=== PATIENT | female | born 1970 | race Caucasian/White ===

== ENCOUNTER 2016-05-03 13:35 | Emergency (ER) | payer SELFPAY | END 2016-05-03 14:33 | disposition left against medical advice (07) | LOC: E/R 13:35 | DX: Z53.21 Procedure and treatment not carried out due to patient leaving prior to being seen by health care provider (principal) ==

== ENCOUNTER 2016-11-02 12:56 | Emergency (ER) | payer OTHER ==
[~2016-11-02] VITALS: Wt 75.0 kg
[2016-11-02] MEDS ORDERED: HYDROCODONE/APAP (5/325) TAB PO ONE (15:00)
[2016-11-02] MEDS ORDERED: DEXAMETHASONE 10 MG/ML 1 ML INJ IM ONE (15:00)
[2016-11-02] MEDS ORDERED: KETOROLAC 30 MG INJ IV STA (15:17)
[2016-11-02 15:57] LABS: BASOPHIL # 0.1 10^3/ul (0.0-0.1); BASOPHILS % 0.5 % (0.0-2.0); EOSINOPHILS # 0.1 10^3/ul (0.0-0.5); EOSINOPHILS % 0.8 % (0.0-7.0); HEMOGLOBIN 14.3 g/dl (12.0-16.0); LYMPHOCYTES # 2.5 10^3/ul (0.8-2.9); LYMPHOCYTES % 18.9 % (15.0-51.0); MEAN CORPUSCULAR HGB CONC 32.5 g/dl (32.0-37.0); MEAN CORPUSCULAR VOLUME 83.2 fl (82.0-101.0); MEAN PLATELET VOLUME 10.2 fl (7.4-10.4); MONOCYTE # 0.9 10^3/ul (0.3-0.9); NEUTROPHIL # 9.7 10^3/ul (1.6-7.5); NEUTROPHILS % 72.6 % (39.0-77.0); PLATELET COUNT 326 10^3/UL (140-415); RED BLOOD COUNT 5.29 10^6/ul (4.20-5.40); RED CELL DISTRIBUTION WIDTH 14.6 % (11.5-14.5); WHITE BLOOD COUNT 13.3 10^3/ul (4.8-10.8)
[2016-11-02] MEDS ORDERED: SOD CHLORIDE 0.9% 1,000 ML IV ONE (16:00)
[2016-11-02 16:19] LABS: ALBUMIN 4.6 g/dl (3.3-4.9); ALBUMIN/GLOBULIN RATIO 1.43; BILIRUBIN,INDIRECT 0.2 mg/dl (0-1.1); BILIRUBIN,TOTAL 0.2 mg/dl (0.2-1.3); CALCIUM 9.6 mg/dl (8.4-10.2); CREATININE 0.88 mg/dl (0.44-1.00); POTASSIUM 4.8 mmol/L (3.5-5.1); TOTAL PROTEIN 7.8 g/dl (6.1-8.1)
--- NOTE | 2016-11-02 16:30 | ERD ---
ER Documentation Chief Complaint Date/Time DATE: 11/02/16 TIME: 16:26 Chief Complaint SORE THROAT FOR THE PAST DAY. UNABLE TO SWALLOW NO STRIDOR HPI This is a 46-year-old female presents the emergency department today complaining of pain with swallowing,, sore throat and pain on the left side of her neck. States she is "unable to swallow her saliva". Denies any fevers or chills. States she has not taken any medication for the pain because she "cannot swallow." Denies any cough,, nasal congestion ROS All systems reviewed and are negative except as per history of present illness. Medications Home Meds Active Scripts Amoxicillin* (Amoxicillin* Susp) 400 Mg/5 Ml Susp.recon, 500 MG PO TID for 7 Days, BOTTLE Prov:KENIA GALLOWAY PA-C 11/02/16 Acetaminophen* (Acetaminophen* Susp) 160 Mg/5 Ml Oral.susp, 20 ML PO Q4H Y for PAIN OR FEVER, #1 BOTTLE Prov:KENIA GALLOWAY PA-C 11/02/16 Ibuprofen (MOTRIN LIQUID (PED)) 20 Mg/Ml Susp, 20 ML PO Q6, #4 OZ Prov:KENIA GALLOWAYC 11/02/16 PMhx/Soc History of Surgery: No Anesthesia Reaction: No Hx Neurological Disorder: No Hx Respiratory Disorders: No Hx Cardiac Disorders: No Hx Psychiatric Problems: No Hx Miscellaneous Medical Probl: No Hx Alcohol Use: No Hx Substance Use: No Hx Tobacco Use: No Smoking Status: Former smoker Physical Exam Vitals Vital Signs Date Time Temp Pulse Resp B/P Pulse Ox O2 Delivery O2 Flow Rate FiO2 11/02/16 13:00 97.9 70 20 140/85 98 Physical Exam Const: No acute distress Head: Atraumatic Eyes: Normal Conjunctiva ENT: Ears TMs normal. Nose no drainage. Throat erythema no exudate uvula midline. No vesicle. Mild tenderness to palpation over submandibular gland with mild lymphadenopathy Neck: Full range of motion..~ No meningismus. Resp: Clear to auscultation bilaterally Cardio: Regular rate and rhythm, no murmurs Skin: No petechiae or rashes Ext: No cyanosis, or edema Neur: Awake and alert Psych: Normal Mood and Affect Result Diagram: 11/02/16 1540 11/02/16 1540 Results 24 hrs Laboratory Tests Test 11/02/16 15:40 White Blood Count 13.310^3/ul Red Blood Count 5.2910^6/ul Hemoglobin 14.3g/dl Hematocrit 44.0% Mean Corpuscular Volume 83.2fl Mean Corpuscular Hemoglobin 27.0pg Mean Corpuscular Hemoglobin Concent 32.5g/dl Red Cell Distribution Width 14.6% Platelet Count 71641^3/UL Mean Platelet Volume 10.2fl Neutrophils % 72.6% Lymphocytes % 18.9% Monocytes % 7.0% Eosinophils % 0.8% Basophils % 0.5% Nucleated Red Blood Cells % 0.0/100WBC Neutrophils # 9.710^3/ul Lymphocytes # 2.510^3/ul Monocytes # 0.910^3/ul Eosinophils # 0.110^3/ul Basophils # 0.110^3/ul Nucleated Red Blood Cells # 0.010^3/ul Sodium Level 144mmol/L Potassium Level 4.8mmol/L Chloride Level 104mmol/L Carbon Dioxide Level 27mmol/L Anion Gap 18 Blood Urea Nitrogen 13mg/dl Creatinine 0.88mg/dl Glucose Level 88mg/dl Calcium Level 9.6mg/dl Total Bilirubin 0.2mg/dl Direct Bilirubin 0.00mg/dl Indirect Bilirubin 0.2mg/dl Aspartate Amino Transf (AST/SGOT) 97IU/L Alanine Aminotransferase (ALT/SGPT) 65IU/L Alkaline Phosphatase 109IU/L Total Protein 7.8g/dl Albumin 4.6g/dl Globulin 3.20g/dl Albumin/Globulin Ratio 1.43 Current Medications Medications (Trade) Dose Ordered Sig/Tereza Route PRN Reason Start Time Stop Time Status Last Admin Dose Admin Dexamethasone (Decadron) 10 mg ONCE ONCE IM 11/02/16 15:00 11/02/16 15:01 DC 11/02/16 14:58 Acetaminophen/ Hydrocodone Bitart (Wilber (5325)) 1 tab ONCE ONCE PO 11/02/16 15:00 11/02/16 16:15 DC 11/02/16 14:58 Ketorolac Tromethamine 30 mg 30 mg ONCE STAT IV 11/02/16 15:17 11/02/16 15:20 DC 11/02/16 15:46 Sodium Chloride (NS) 1,000 ml @ 1,000 mls/hr Q1H ONCE IV 11/02/16 16:00 11/02/16 16:59 DC 11/02/16 16:15 IV Flush 10 ml 10 ml STK-MED ONCE .ROUTE 11/02/16 16:44 11/02/16 16:45 DC 11/02/16 16:58 Sodium Chloride (NS) 100 ml @ ud STK-MED ONCE .ROUTE 11/02/16 16:44 11/02/16 16:45 DC 11/02/16 16:58 Iohexol (Omnipaque 300mg/ ml) 150 ml STK-MED ONCE .ROUTE 11/02/16 16:44 11/02/16 16:45 DC 11/02/16 16:58 Acetaminophen (Tylenol Liquid) 500 mg ONCE ONCE NGT 11/02/16 19:00 11/02/16 19:01 DIAGNOSTIC IMAGING REPORT Patient: OSWALD GONZALEZ : 1970 Age: 46 Sex: F MR #: [id number] DOS: 11/02/16 0000 Ordering MD: KENIA GALLOWAY PA-C Location: [facility] Room/Bed: PROCEDURE: CT scan of the neck with contrast. CLINICAL INDICATION: Difficulty swallowing with pain on left side of neck. TECHNIQUE: CT scan of the neck was performed on the [employer] volumetric 64-slice. Contiguous axial images were obtained throughout the neck with coronal and sagittal reformatted images. The patient was examined following the uncomplicated intravenous administration of 100 cc of Isovue 300. No complications occurred. DLP = 249.4 mGy-cm. CTDI vol = 9.4 mGy. One or more of the following dose reduction techniques were used: Automated exposure control. Adjustment of the mA and/or kV according to patient size. Use of iterative reconstruction technique. COMPARISON: None available FINDINGS: There is a small rim enhancing fluid and gas collection measuring 6 x 8 mm in the left submandibular region just superior to the left submandibular gland. Otherwise the oropharynx, hypopharynx, larynx, and trachea are unremarkable. No airway compromise is seen. The mucosal space of the airway is clear. The tonsillar pillars are normal. The deep spaces of the suprahyoid neck are symmetric and normal. No mass is identified. The parotid glands, submandibular glands are normal. The thyroid gland appears normal. Imaging obtained through the lung apices revealed no acute abnormality. Normal size lymph nodes are seen within the typical laura bearing stations of the neck bilaterally. No adenopathy is detected. No mass or fluid collection or other abnormality is seen. The surrounding soft tissues and muscles are unremarkable as well. . Incidentally noted is prominent extra-axial space in the left side of the posterior fossa suggestive of an arachnoid cyst. IMPRESSION: 1. Small rim enhancing 6 x 8 mm gas and fluid collection in the left submandibular region just superior to the submandibular gland. This may represent a tiny abscess. 2. Possible incidental arachnoid cyst in the left posterior fossa of the skull. Non emergent MRI or CT brain could be obtained to further evaluate. RPTAT: QQ .Steven Mahmood MD, MD Date Time Electronically viewed and signed by .Steven Mahmood MD, MD on 11/02/2016 18:36 .L/ CC: KENIA GALLOWAY PA-C Procedures/MDM This is a 46 year-old female who presents emergency department today complaining of pain and difficulty swallowing. Patient did have some mild lymphadenopathy on the left side of her neck and therefore I did give her a injection of Decadron. I did try to give the patient pain medication orally however patient indicated she was still unable to swallow. Patient became very upset and was questioning the nursing staff as to why they were giving her a pill when she stated "I cannot swallow". I did explain to the patient that I wanted to see what she was able to tolerate. Patient again became very upset stating that she felt that the emergency department was "disorganized" and stated that she had to wait in the waiting room and then in the exam room and then wait in the chair. Patient kept asking what time it was. Patient also stated to the nursing staff that she did not want to wait in the waiting room because "I do not feel well do think I want to sit in that room?". I explained to the patient that I would be happy to obtain a CT scan for her to check for any abscesses and patient indicated that she just wanted to leave and go home and go to another emergency room. I explained to the patient that I would have to have her sign paperwork that she was leaving AGAINST MEDICAL ADVICE and patient changed her mind Laboratory workup shows a mildly elevated white blood cell count. She is not anemic. Platelets are within normal limits. Electrolytes are within normal limits. AST is mildly elevated. Bili is within normal limits. Creatinine is within normal limits. Glucose is within normal limits. Urine test is negative CT neck soft tissue with contrast shows a small rim-enhancing 6 x 8 mm gas and fluid collection in the left submandibular region just superior to the submandibular gland. This may represent a tiny abscess. There is an incidental arachnoid cyst in the left posterior fossa the skull. Nonemergent MRI or CT brain could be obtained to further evaluate. No airway compromise is seen. Normal sized lymph nodes are seen within the typical laura bearing stations of the neck bilaterally. There is no adenopathy detected. There is no mass or fluid collection or other abnormality seen. Patient symptoms at this time consistent with sore throat and possible small abscess. There is no indication to admit the patient at this time. Patient was given IV fluid, Decadron and Toradol here in the emergency department. Patient indicated her pain had returned and she was therefore given liquid Tylenol. Patient was given a prescription for Tylenol, Motrin and Augmentin given patient 's presentation. Patient was given liquid form At this time the patient is stable for discharge and outpatient management. Patient should follow up with their PCP in the next 1-2 days for referral to ENT specialist. They may return to the emergency department sooner for any persistent or worsening of symptoms. Patient understood and agreed with the plan. Discussed the patient with Dr. Gracia and he is in agreement with the plan. Departure Diagnosis: Primary Impression: Sore throat Condition: KENIA Garcia PA-C Nov 02, 2016 16:30
[2016-11-02] MEDS ORDERED: SOD CHLORIDE 0.9% 100 ML ONE (16:44)
[2016-11-02] MEDS ORDERED: IOHEXOL 300MG/ML 150 ML BTL ONE (16:44)
[2016-11-02] MEDS ORDERED: MOTS PO (18:27)
[2016-11-02] MEDS ORDERED: ACET160O41 PO (18:27)
[2016-11-02] MEDS ORDERED: AMOX400S4 PO (18:31)
--- NOTE | 2016-11-02 18:37 | RADRPT ---
PROCEDURE: CT scan of the neck with contrast. CLINICAL INDICATION: Difficulty swallowing with pain on left side of neck. TECHNIQUE: CT scan of the neck was performed on the [employer] volumetric 64-slice. Contiguous axial images were obtained throughout the neck with coronal and sagittal reformatted images. The pa tient was examined following the uncomplicated intravenous administration of 100 cc of Isovue 300. No complications occurred. DLP = 249.4 mGy-cm. CTDI vol = 9.4 mGy. One or more of the following dose reduction techniques were used: Automated exposure control. Adjustment of the mA and/or kV according to patient size. Use of iterative reconstruction technique. COMPARISON: None available FINDINGS: There is a small rim enhancing fluid and gas collection measuring 6 x 8 mm in the left submandibular region just superior to the left submandibular gland. Otherwise the oropharynx, hypopharynx, laryn x, and trachea are unremarkable. No airway compromise is seen. The mucosal space of the airway is clear. The tonsillar pillars are normal. The deep spaces of the suprahyoid neck are symmetric and normal. No mass is identified. The parotid glands, submandibular glands are normal. The thyroid gland appears normal. Imaging obtained through the lung apices revealed no acute abnormality. Nor mal size lymph nodes are seen within the typical laura bearing stations of the neck bilaterally. No adenopathy is detected. No mass or fluid collection or other abnormality is seen. The surrounding soft tissues and muscles are unremarkable as well. . Incidentally noted is prominent extra-axial space in the left side of the posterior fossa suggestive of an arachnoid cyst. IMPRESSION: 1. Small rim enhancing 6 x 8 mm gas and fluid collection in the left submandibular region just supe rior to the submandibular gland. This may represent a tiny abscess. 2. Possible incidental arachnoid cyst in the left posterior fossa of the skull. Non emergent MRI or CT brain could be obtained to further evaluate. RPTAT: QQ .Steven Mahmood MD, Date Time Electronically viewed and signed by .Steven Mahmood MD, on 11/02/2016 18:36 .L/
[2016-11-02] MEDS ORDERED: AMOX1TAB10 PO (18:45)
[2016-11-02] MEDS ORDERED: AMOX250S25 PO (18:45)
[2016-11-02] MEDS ORDERED: ACETAMINOPHEN 650MG/20.3ML CUP NGT ONE (19:00)
[2016-11-02 19:02] VITALS: BP 134/67; PULSE 70; RESP 18; TEMP 98.1
== END 2016-11-02 19:04 | disposition home or self-care (01) ==
LOC: FTE 12:56
DX: J02.9 Acute pharyngitis, unspecified (principal); Z87.891 Personal history of nicotine dependence
CPT/HCPCS: 36415; 70491; 80053; 85025; 96372; 96374; J1100; J1885; J7030; Q9967; Z7502; Z7610